=== PATIENT | female | born 1950 ===

== ENCOUNTER → 2017-11-30 | Outpatient (CLI) | payer MEDICARE, OTHER ==
[~2017-11-30] MED LIST: ASPI81EC PO; CEPH500 PO; CIPR500 PO; CLON.5 PO; CYCL10 PO; HYDACE5325 PO; HYDMOR2 PO; LEVSOD88 PO; MARIJUANA; METR500 PO; MUPI2TC TOP; OXYACE5T PO; PROM25 PO; THYROID
== END | disposition home or self-care (01) ==
LOC: PLD 13:34 → LAB SHORT 13:34
DX: D22.5 Melanocytic nevi of trunk (principal)
CPT/HCPCS: 88305

== ENCOUNTER → 2018-07-20 | Outpatient (CLI) | payer MEDICARE, OTHER | LOC: PLD 14:18 → LAB SHORT 14:18 | DX: D48.5 Neoplasm of uncertain behavior of skin (principal); D09.8 Carcinoma in situ of other specified sites | CPT/HCPCS: 88305 ==

== ENCOUNTER 2019-11-17 12:46 | Emergency (ER) | payer MEDICARE, OTHER ==
[~2019-11-17] VITALS: Ht 160 cm; Wt 57.6 kg
[2019-11-17 13:35] LABS: BASOPHILS ABSOLUTE AUTO 0.07 K/mm3 (0.00-0.23); BASOPHILS PERCENT AUTO 1 % (0-2); EOSINOPHILS ABSOLUTE AUTO 0.08 K/mm3 (0.00-0.68); EOSINOPHILS PERCENT AUTO 1 % (0-6); Hematocrit 41.7 % (33.0-51.0); Hemoglobin 13.9 g/dL (11.5-16.0); IMMATURE GRAN ABSOLUTE AUTO 0.04 K/mm3 (0.00-0.10); IMMATURE GRAN PERCENT AUTO 0 % (0-1); LYMPHOCYTES ABSOLUTE AUTO 1.62 K/mm3 (0.84-5.20); LYMPHOCYTES PERCENT AUTO 11 % (21-46); MONOCYTES ABSOLUTE AUTO 1.01 K/mm3 (0.16-1.47); MONOCYTES PERCENT AUTO 7 % (4-13); Mean Corpuscular HGB 31.5 pg (26.0-34.0); Mean Corpuscular HGB Conc 33.3 g/dL (31.5-36.5); Mean Corpuscular Volume 95 fL (80-100); Mean Platelet Volume 10.5 fL (9.1-12.4); NEUTROPHILS ABSOLUTE AUTO 11.56 K/mm3 (1.96-9.15); NEUTROPHILS PERCENT AUTO 80 % (41-73); Platelet Count 313 K/mm3 (150-400); RDW Standard Deviation 49.2 fL (35.1-46.3); Red Blood Cell Count 4.41 M/mm3 (3.80-5.20); White Blood Cell Count 14.38 K/mm3 (4.00-11.30)
[2019-11-17 13:36] LABS: Source, Urine Clean Catch
[2019-11-17 13:40] LABS: Bilirubin, Urine Neg (Neg); Blood, Urine 1+ (Neg); Glucose Qualitative, Urine Neg (Neg); Ketones, Urine 3+ (Neg); Leukocyte Esterase, Urine Neg (Neg); Nitrite, Urine Neg (Neg); Protein, Urine Neg (Neg); Urobilinogen, Urine NORM (Normal)
[2019-11-17 13:51] LABS: Alanine Aminotransfer (ALT/SGP 33 U/L (12-78); Albumin, Blood 3.3 g/dL (3.4-5.0); Albumin/Globulin Ratio 0.8 (0.8-1.8); Alk Phos 96 U/L (50-136); Anion Gap 7 mmol/L (6-16); Aspartate Aminotrans (AST/SGOT 42 U/L (12-37); Bilirubin, Total 0.8 mg/dL (0.1-1.0); Blood Urea Nitrogen 9 mg/dL (8-24); Bun/Creatinine Ratio 17.2 (12.0-20.0); CO2, Blood 26 mmol/L (21-32); Calcium, Blood 11.2 mg/dL (8.5-10.1); Chloride, Blood 106 mmol/L (98-108); Creatinine, Blood 0.52 mg/dL (0.40-1.00); Globulin, Blood 4.3 g/dL (2.2-4.0); Glomerular Filtration Rate >60 (60-); Glucose, Blood 104 mg/dL (70-99); Potassium, Blood 4.1 mmol/L (3.5-5.5); Sodium, Blood 139 mmol/L (136-145); Total Protein, Blood 7.6 g/dL (6.4-8.2)
[2019-11-17] MEDS ORDERED: XARELTO10 MG PO (14:17)
[2019-11-17 14:53] LABS: Appearance, Urine Cloudy (Clear); Color, Urine Yellow (P-Yellow)
[2019-11-17 14:54] LABS: Amorphous Mod (0-Heavy); Bacteria Mod /hpf; Red Blood Cells, Urine 0-2 /hpf (0-2); Squamous Epithelial Cells Not Seen /hpf (Few); White Blood Cells, Urine Not Seen /hpf (0-5)
[2019-11-17] MEDS ORDERED: Protonix40 MG PO (16:24)
[2019-11-17] MEDS ORDERED: ONDA4ODT MM (16:24)
== END 2019-11-17 16:37 | disposition home or self-care (01) ==
LOC: ER 12:46
PROVIDERS: Physician Assistant
DX: K29.70 Gastritis, unspecified, without bleeding (principal); K29.80 Duodenitis without bleeding; M79.7 Fibromyalgia; F17.200 Nicotine dependence, unspecified, uncomplicated; Z79.82 Long term (current) use of aspirin; Z79.899 Other long term (current) drug therapy; Z88.1 Allergy status to other antibiotic agents; Z88.5 Allergy status to narcotic agent; Z88.8 Allergy status to other drugs, medicaments and biological substances; Z96.642 Presence of left artificial hip joint
CPT/HCPCS: 36415; 74177; 80053; 81001; 83690; 85025; 87086; 96374-59; 96375; 99284-25; J1170; J2405; Q9967

== ENCOUNTER → 2020-09-18 | Outpatient (CLI) | payer MEDICARE, OTHER ==
[~2020-09-18] MED LIST changes: +ONDA4ODT MM; +Protonix40 MG PO; +XARELTO10 MG PO
== END | disposition home or self-care (01) ==
LOC: PLD 14:44 → LAB SHORT 14:44
DX: D22.5 Melanocytic nevi of trunk (principal); D04.62 Carcinoma in situ of skin of left upper limb, including shoulder; L81.4 Other melanin hyperpigmentation
CPT/HCPCS: 88305